=== PATIENT | male | born 1975 ===

== ENCOUNTER 2018-07-03 18:39 | Inpatient (IN) | payer SELFPAY ==
[2018-07-03 19:55] VITALS: BMI 26.5
[2018-07-03] MEDS ORDERED: Fentanyl 100 MCG/2 ML VIAL SLOW IVP PRN ×2 (21:47→22:00)
[2018-07-03] MEDS ORDERED: Ketorolac Tromethamine 30 MG/ML VIAL IVP PRN (22:01)
[2018-07-03] MEDS: Ketorolac Tromethamine 30 MG/ML VIAL IVP SCH (22:26)
[2018-07-03] MEDS ORDERED: Ondansetron PF 4 MG/2 ML Vial IVP PRN (22:26)
[2018-07-03] MEDS: Lidocaine 5% Patch TD SCH (22:28)
[2018-07-03] MEDS ORDERED: Nicotine 21 MG PATCH TD SCH (22:30)
[2018-07-03] MEDS: Sodium Chloride 0.9% 1,000 ML IV SCH (22:37)
[2018-07-03] MEDS: metroNIDAZOLE 500 MG in Premix Bag 1 BAG IVPB SCH (22:37)
--- NOTE | 2018-07-03 23:00 | HP ---
PRIMARY CARE PROVIDER: None. CHIEF COMPLAINT: Abdominal pain. HISTORY OF PRESENT ILLNESS: Mr. Anderson is a pleasant 42-year-old gentleman, who was seen at [facility] on July 03, 2018, following transfer from [facility]. He reports that last few days, he has had abdominal pain. He describes it as suprapubic, radiating to right and left lower quadrants, aching and stabbing, 10/10 at its worst, improved by lying still and worsened with movement. He denies any nausea or vomiting. His last bowel movement was yesterday. He had a tele MD conference and was started on Bactrim for prostatitis 3 days ago. He has worsening symptoms and therefore presented to the emergency room. REVIEW OF SYSTEMS: All other systems reviewed and found to be negative. PAST MEDICAL HISTORY: Diverticular disease. PAST SURGICAL HISTORY: Surgery for ruptured appendix 12 years ago. This was followed by incisional hernia repair. This was further followed by mesh replacement because of complications. FAMILY HISTORY: No family history of coronary artery disease. SOCIAL HISTORY: Occasional alcohol use. No recreational drug use. The patient smokes one pack of cigarettes a day. ALLERGIES: MORPHINE, PATIENT REPORTS THAT HE GETS NAUSEOUS WITH MORPHINE. CURRENT MEDICATIONS: The patient does not take any medications on a regular basis at home. PHYSICAL EXAMINATION: GENERAL: On examination, Mr. Anderson is awake and alert, not in acute distress. VITAL SIGNS: Blood pressure is 124/79, pulse 93, respiratory rate 20, and oxygen saturation 97% on room air. He is afebrile. EYES: No scleral icterus. No conjunctival pallor. ENT: Moist mucosal membranes. No oropharyngeal erythema or exudates. NECK: Supple, nontender. Trachea is midline. RESPIRATORY: Accessory muscles of breathing are not active. Chest wall movements are symmetric bilaterally. Lungs are clear to auscultation without wheeze, rhonchi, or crepitations. CARDIOVASCULAR: S1 and S2 are heard, regular. Peripheral pulses palpable. No carotid bruit. No pericardial rub. ABDOMEN: Tenderness over both lower quadrants and suprapubic region. No guarding or rigidity. Bowel sounds heard. NEUROLOGIC: Cranial nerves 2 through 12 are intact. MUSCULOSKELETAL: Power is 5/5 in all four extremities. SKIN: No rashes or subcutaneous nodules. LYMPHATIC: No cervical lymphadenopathy. PSYCHIATRIC: Normal mood. Normal affect. Patient is oriented to person, place, and time. LABORATORY DATA: Mr. Anderson' labs and investigations were reviewed. He has leukocytosis with 15,600 white cells, of which 81% are granulocytes; hemoglobin is 14.2; platelet count is elevated at 519,000. He has normal electrolytes, normal creatinine, and unremarkable liver profile except for decreased albumin of 3.2, and elevated total protein of 8.1. Urinalysis is negative for nitrite and leukocyte esterase. He had CT scan of the abdomen and pelvis with intravenous contrast at the [facility], which showed probable diverticulitis with abscess inferior and anterior to the mid sigmoid colon. Radiologist reports that abscess could be associated with prior anterior abdominal wall hernia repair, and findings in sigmoid colon could be reactant to peritonitis, but this is less likely. ASSESSMENT AND PLAN: Mr. Anderson is a pleasant 42-year-old gentleman, who was seen at [facility] on July 03, 2018. His problem list includes: 1. Abdominal pain: Differential diagnosis includes diverticular abscess as well as peritonitis, peritonitis being less likely. He has been started on antibiotics at [facility]. I will continue him on ciprofloxacin and Flagyl. We will consult General Surgery for opinion and help with management. We will continue pain medications. 2. Tobacco abuse: The patient has been counseled regarding tobacco cessation. We will start him on nicotine replacement therapy. Many thanks for allowing me to participate in your patient's care. Please feel free to contact me with any questions or concerns. LEVEL OF RISK: Moderate. LEVEL OF COMPLEXITY: Moderate. Job ID: [id number]
[2018-07-03] MEDS: Promethazine HCl 25 MG/ML VIAL IM/IV PRN (23:51)
[2018-07-03] MEDS: Morphine 4 MG/ML VIAL SLOW IVP PRN (23:51)
[2018-07-04] MEDS: metroNIDAZOLE 500 MG in Premix Bag 1 BAG IVPB SCH ×3 (06:32→22:38)
[2018-07-04 07:02] LABS: #Basophils 0.1 thou/uL (0.0-0.2); #Eosinphils 0.6 thou/uL (0.0-0.7); #Lymphocytes 2.5 thou/uL (1.20-3.40); #Monocytes 1.5 thou/uL (0.11-0.59); #Neutrophils 12.1 thou/uL (1.40-6.50); %Basophils 0.4 % (0.0-1.0); %Eosinophils 3.3 % (0.0-10.0); %Lymphocytes 14.9 % (21.0-51.0); %Monocytes 9.2 % (0.0-10.0); %Neutrophils 72.2 % (42.0-75.0); Hemoglobin 11.8 g/dL (14.0-18.0); Mean Corpuscular HGB CONC 33.3 g/dL (32.0-36.0); Mean Corpuscular Hemoglobin 32.1 pg (27.0-31.0); Mean Corpuscular Volume 96.2 fL (78.0-98.0); Mean Platelet Volume 6.9 fL (7.4-10.4); Platelet Count 469 thou/uL (130-400); RBC Distribution Width 11.6 % (11.5-14.5); Red Blood Cell (RBC) Count 3.68 mill/uL (4.70-6.10); White Blood Cell (WBC) Count 16.7 thou/uL (4.8-10.8)
[2018-07-04 07:18] LABS: Anion Gap 14 mmol/L (10-20); BUN (Urea Nitrogen) 10 mg/dL (8.9-20.6); Calc. Creatinine Clearance 173 mL/min (70-130); Calcium 8.7 mg/dL (7.8-10.44); Carbon Dioxide 17 mmol/L (22-29); Chloride 106 mmol/L (98-107); Estimated GFR-MDRD Greater than 90; Glucose 95 mg/dL (70-105); Potassium 4.1 mmol/L (3.5-5.1); Sodium 133 mmol/L (136-145)
[2018-07-04] MEDS: Promethazine HCl 25 MG/ML VIAL IM/IV PRN ×3 (07:27→20:34)
[2018-07-04] MEDS: Morphine 4 MG/ML VIAL SLOW IVP PRN ×3 (07:28→20:35)
[2018-07-04] MEDS: Enoxaparin Sodium 40 MG/0.4 ML SYRINGE SC SCH (09:00)
[2018-07-04 11:04] LABS: INR-International Normal Ratio 1.2; PTT 38.6 SEC (22.9-36.1); Prothrombin Time 15.2 SEC (12.0-14.7)
[2018-07-04] MEDS: Nicotine 21 MG PATCH TD SCH (11:14)
[2018-07-04] MEDS: Ketorolac Tromethamine 30 MG/ML VIAL IVP SCH (12:09)
[2018-07-04] MEDS: Sodium Chloride 0.9% 1,000 ML IV SCH (13:00)
[2018-07-04] MEDS ORDERED: Sodium Bicarbonate 2.5 MEQ/5 ML VIAL ONE (13:04)
[2018-07-04] MEDS ORDERED: Midazolam HCl 2 mg/2 ml Vial ONE (13:05)
[2018-07-04] MEDS ORDERED: Fentanyl 100 MCG/2 ML VIAL ONE (13:05)
--- NOTE | 2018-07-04 13:18 | CON ---
DATE OF CONSULTATION: 07/04/2018 HISTORY: Mr. Anderson is a 42-year-old man, who was admitted with over 1-week history of left lower quadrant greater than right lower abdominal pain. The patient consulted a telemedicine 1 week ago and was uncertain about a diagnosis. He presented to the stand-alone emergency department in [facility] yesterday, at which time he underwent a CT scan of the abdomen and pelvis, finding acute diverticulitis with diverticular abscess. Antibiotic therapy was initiated and the patient was transferred to [facility] for upper level care. At the time of my evaluation, the patient is awake and alert. He reports 9/10 abdominal pain, which is exacerbated with any movement. Pain is exacerbated with abdominal exertion during urination or defecation. The patient reports some fever and chills, although he has not been able to take his body temperature at home. At maximum intensity, the pain was rated at 10/10. PAST MEDICAL HISTORY: Significant for ruptured appendix 13 years ago, complicated by a postoperative ventral incisional hernia. PAST SURGICAL HISTORY: Significant for exploratory laparotomy and appendectomy for ruptured appendix 12-13 years ago. Other pertinent surgical history includes reoperative laparotomy and repair of ventral incisional hernia with mesh. The mesh was subsequently removed due to infection. According to the patient, a ventral incisional herniorrhaphy was again performed. SOCIAL HISTORY: He is single, lives independently. 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 He has over a [id number] cigarette smoking history. He drinks a moderate amount of ethanol occasionally. He denies any illicit drug abuse. FAMILY HISTORY: Pertinent for diabetes mellitus in his father. He denies any family history of coronary artery disease, essential hypertension, inflammatory bowel disease, or cancer. MEDICATIONS: Prehospitalization medications, none. ALLERGIES: MORPHINE. REVIEW OF SYSTEMS: Ten-point review of systems essentially unremarkable except as stated in past medical history and chief complaint. PHYSICAL EXAMINATION: GENERAL: This reveals a 42-year-old normally developed man, who is otherwise coherent and interactive and appears stated age. The patient is alert and oriented x3, appears to be in moderate acute distress secondary to abdominal pain. VITAL SIGNS: Today include blood pressure 103/70, pulse is 90, respiratory rate is 20, temperature is 97.9 degrees Fahrenheit, and oxygen saturation is 95% on room air. HEENT: Normocephalic and atraumatic. Pupils equal, round, and reactive to light and accommodation. He has no jugular venous distention noted. HEART: Regular rate and rhythm. No murmurs or gallops auscultated. LUNGS: Clear to auscultation bilaterally. Breathing, regular and nonlabored. ABDOMEN: Soft with severe lower abdominal tenderness to palpation, greater in the left lower quadrant. There is also significant suprapubic tenderness to palpation. He has a positive rebound tenderness present. Liver and spleen otherwise nonpalpable below costal margin. NEUROLOGIC: No focal deficits present. LABORATORY FINDINGS: Today include a CBC with 16,700 white blood cells, hemoglobin and hematocrit 11.8 and 35.4 respectively, and platelet count is 469,000. Metabolic profile; sodium 133, potassium is 4.1, chloride is 106, bicarb is 17, BUN is 10, creatinine is 0.66, and glucose is 95. I personally reviewed the CT scan of the abdomen pelvis, which was obtained at [facility] yesterday. This reveals extensive diverticulosis coli involving the left colon, there is a significant amount of pericolonic fat stranding and large abscess collection pressing on the urinary bladder. No pneumoperitoneum is present. IMPRESSIONS: 1. Acute diverticulitis. 2. Large diverticular abscess. RECOMMENDATIONS: 1. We will ask Interventional Radiology for percutaneous abscess drainage. 2. We will obtain cultures at that time. 3. Continue broad-spectrum antibiotic therapy. 4. There is no acute surgical indication for this patient at this time. 5. Surgical intervention would only be deferred for failure of conservative therapy. 6. The patient will subsequently be followed up in the general surgery clinic post discharge after a 2-week course of oral antibiotic therapy. 7. I did discuss with the patient of the potential for an elective sigmoidectomy after this current process has resolved. He will eventually need a preoperative colonoscopy. 8. Surgery will be performed in elective fashion, will entail sigmoidectomy with primary anastomosis once bowel was prepped. 9. Any operative intervention at this time without resolution of the acute inflammatory process will be fraught with potential complications, not to mention the need for colostomy at that time. 10. The patient indicates understanding the information given. I will follow along the course of his treatment and make further recommendations as necessary. Thank you again, Dr. Seals, for allowing me the opportunity to participate in the care of this patient. Job ID: [id number]
--- NOTE | 2018-07-04 13:20 | PDOC.PN ---
- Subjective Encounter Start Date: 07/04/18 Encounter Start Time: 11:00 Subjective: abd pain is better, is taking a lot of pain meds to counter it -: no nausea, is npo - Objective MAR Reviewed: Yes Vital Signs & Weight: Vital Signs (12 hours) Temp Pulse Resp BP Pulse Ox 07/04/18 11:55 99.2 F 86 20 100/69 92 L 07/04/18 08:00 97.9 F 90 20 103/70 95 07/04/18 07:28 110/70 07/04/18 04:54 98.9 F 89 16 107/71 97 Weight Weight 185 lb Result Diagrams: 07/04/18 06:23 07/04/18 06:23 Phys Exam - Physical Examination HEENT: PERRLA dry mucosa Neck: no JVD, supple Respiratory: no wheezing, no rales Cardiovascular: RRR, no significant murmur Gastrointestinal: soft, no distention, positive bowel sounds tenderness++ generalized, more in llq, has voluntary guarding Musculoskeletal: no edema, pulses present Neurological: non-focal, moves all 4 limbs Psychiatric: normal affect, A&O x 3 Dx/Plan (1) Acute diverticulitis Code(s): K57.92 - DVTRCLI OF INTEST, PART UNSP, W/O PERF OR ABSCESS W/O BLEED Status: Acute Comment: with abscess (2) Sepsis Code(s): A41.9 - SEPSIS, UNSPECIFIED ORGANISM Status: Acute Qualifiers: Sepsis type: sepsis due to unspecified organism Qualified Code(s): A41.9 - Sepsis, unspecified organism (3) Metabolic acidosis Code(s): E87.2 - ACIDOSIS Status: Acute (4) Tobacco abuse Code(s): Z72.0 - TOBACCO USE Status: Chronic - Plan d/w , has asked IR for percut tube drainage of abscess -: will f/u as outpt after he is discharged -: on cipro, flagyl, morphine, toradol, fentanyl -: iv hydration -: wbc is 16k, will need ID consult based on abscess culture results * . Review of Systems - Medications/Allergies Allergies/Adverse Reactions: Allergies Allergy/AdvReac Type Severity Reaction Status Date / Time No Known Allergies Allergy Unverified 07/03/18 22:57 Medications: Current Medications Enoxaparin Sodium (Lovenox) 40 mg SC 0900 [facility] Last Admin: 07/04/18 09:00 Dose: Not Given Fentanyl (Sublimaze) 12.5 mcg SLOW IVP Q8H PRN PRN Reason: Pain Last Admin: 07/04/18 10:53 Dose: 12.5 mcg Ciprofloxacin/Dextrose 400 mg/ (Device) 200 mls @ 200 mls/hr IVPB Q12H [facility] Last Admin: 07/04/18 10:47 Dose: 200 mls Metronidazole 500 mg/ Device 100 mls @ 100 mls/hr IVPB Q8H [facility] Last Admin: 07/04/18 06:32 Dose: 100 mls Sodium Chloride (Normal Saline 0.9%) 1,000 mls @ 70 mls/hr IV .[id number] [facility] Last Admin: 07/03/18 22:37 Dose: 1,000 mls Ketorolac Tromethamine (Toradol) 30 mg IVP ONE [facility] Stop: 07/08/18 22:16 Last Admin: 07/04/18 12:09 Dose: 30 mg Ketorolac Tromethamine (Toradol) 15 mg IVP Q6H PRN PRN Reason: Pain Stop: 07/08/18 22:02 Last Admin: 07/04/18 06:34 Dose: 15 mg Lidocaine (Lidoderm 5% Patch) 1 patch TD Q24H [facility] Last Admin: 07/03/18 22:28 Dose: 1 patch Morphine Sulfate (Morphine) 2 mg SLOW IVP Q4H PRN PRN Reason: Pain Last Admin: 07/04/18 13:08 Dose: 2 mg Nicotine (Nicoderm Patch) 21 mg TD Q24HR [facility] Last Admin: 07/04/18 11:14 Dose: 21 mg Promethazine HCl (Phenergan) 25 mg IM/IV Q6H PRN PRN Reason: Nausea/Vomiting Last Admin: 07/04/18 13:09 Dose: 25 mg
--- NOTE | 2018-07-04 15:36 | CT ---
CT GUIDED PERCUTANEOUS ABSCESS DRAINAGE 07/04/18 HISTORY: Diverticular abscess. COMPARISON: Outside imaging 07/03/18. CONSCIOUS SEDATION: 25 micrograms of Fentanyl and 1 gram versed. FINDINGS: Technically successful CT guided percutaneous abscess drainage. Total of 105 mL of infected fluid was aspirated. No immediate or postprocedure complications. TECHNIQUE: Consent obtained to perform a CT guided percutaneous abscess drainage. The infected fluid collection was identified. Skin was marked. Skin was also prepped and draped utilizing sterile technique. 1% li docaine buffered with sodium bicarbonate was used for local anesthesia. Under CT guidance, an 8 Frenc h drainage catheter was placed into the infected fluid collection. Total of 105 mL of infected fluid was aspirated. Postprocedure images demonstrate appropriate location of the drainage catheter. There were no immediate or postprocedure complications. IMPRESSION: Successful CT guided abscess drainage. POS: ROBERTO CARLOS
[2018-07-04] MEDS: Lidocaine 5% Patch TD SCH (20:36)
[2018-07-04 20:54] LABS: BF Color Gray; Body Fluid Source Abscess Fluid; Clarity Cloudy/Turbid (Clear); Tube # EDTA
[2018-07-05] MEDS: Sodium Chloride 0.9% 1,000 ML IV SCH (02:00)
[2018-07-05] MEDS: metroNIDAZOLE 500 MG in Premix Bag 1 BAG IVPB SCH ×2 (04:23→13:51)
[2018-07-05] MEDS: Morphine 4 MG/ML VIAL SLOW IVP PRN ×2 (04:24→10:28)
[2018-07-05] MEDS: Promethazine HCl 25 MG/ML VIAL IM/IV PRN ×2 (04:25→10:28)
[2018-07-05] MEDS: Enoxaparin Sodium 40 MG/0.4 ML SYRINGE SC SCH (10:02)
[2018-07-05] MEDS: Nicotine 21 MG PATCH TD SCH (10:28)
--- NOTE | 2018-07-05 13:36 | PDOC.PN ---
- Subjective Encounter Start Date: 07/05/18 Encounter Start Time: 11:30 Patient seen and examined for Diverticular absces s/p CT drainage. Had BM earlier. No N/V. Appetite improving. Intermittent abd pain+. No fever/chills. No other complaints. No overnight events - Objective MAR Reviewed: Yes Vital Signs & Weight: Vital Signs (12 hours) Temp Pulse Resp BP Pulse Ox 07/05/18 08:00 97.5 F L 71 18 94/64 93 L 07/05/18 04:30 97.8 F 80 18 99/67 93 L Weight Weight 185 lb I&O: 07/04/18 07/05/18 07/06/18 06:59 06:59 06:59 Output Total 25 Balance -25 Result Diagrams: 07/04/18 06:23 07/04/18 06:23 Phys Exam - Physical Examination Constitutional: NAD Respiratory: no wheezing, no rhonchi Cardiovascular: RRR, no rub Gastrointestinal: soft, no distention, positive bowel sounds mild tenderness over suprapubic region Musculoskeletal: no edema, pulses present Neurological: non-focal, moves all 4 limbs Psychiatric: A&O x 3 Dx/Plan - Plan DVT proph w/SCDs 1. Sepsis due to Acute Diverticulitis with abscess s/p CT drainage 2. Metabolic acidosis 3. Tobacco dep PLAN: Cont IVF Cont IV Cipro and Flagyl Await cultures Cont other meds as below AM labs Consult [employer] Claims Adjuster for dietary modification for Diverticulosis Microbiology 07/04/18 16:06 Venous blood - Right Hand Blood Culture - Preliminary Specimen has been received and culture in progress. No Growth to date. 07/04/18 16:01 Venous blood - Right Arm Blood Culture - Preliminary Specimen has been received and culture in progress. No Growth to date. 07/04/18 14:15 Abdomen - Abscess Bacterial Culture - Preliminary Gram Negative Gabe Alpha-Hemolytic Streptococcus Laboratory Tests 07/04/18 10:45 C-Reactive Protein 18.63 H Review of Systems - Review of Systems Respiratory: negative: Cough, Dry, Shortness of Breath, Hemoptysis, SOB with Excertion, Pleuritic Pain, Sputum, Wheezing Cardiovascular: negative: chest pain, palpitations, orthopnea, paroxysmal nocturnal dyspnea, edema, light headedness, other - Medications/Allergies Allergies/Adverse Reactions: Allergies Allergy/AdvReac Type Severity Reaction Status Date / Time No Known Allergies Allergy Unverified 07/03/18 22:57 Medications: Current Medications Enoxaparin Sodium (Lovenox) 40 mg SC 0900 [facility] Last Admin: 07/05/18 10:02 Dose: 40 mg Ciprofloxacin/Dextrose 400 mg/ (Device) 200 mls @ 200 mls/hr IVPB Q12H [facility] Last Admin: 07/05/18 10:02 Dose: 200 mls Metronidazole 500 mg/ Device 100 mls @ 100 mls/hr IVPB Q8H [facility] Last Admin: 07/05/18 04:23 Dose: 100 mls Sodium Chloride (Normal Saline 0.9%) 1,000 mls @ 70 mls/hr IV .[id number] [facility] Last Admin: 07/05/18 02:00 Dose: Not Given Lidocaine (Lidoderm 5% Patch) 1 patch TD Q24H [facility] Last Admin: 07/04/18 20:36 Dose: 1 patch Morphine Sulfate (Morphine) 4 mg SLOW IVP Q4H PRN PRN Reason: Pain Last Admin: 07/05/18 10:28 Dose: 4 mg Nicotine (Nicoderm Patch) 21 mg TD Q24HR [facility] Last Admin: 07/05/18 10:28 Dose: 21 mg Promethazine HCl (Phenergan) 25 mg IM/IV Q6H PRN PRN Reason: Nausea/Vomiting Last Admin: 07/05/18 10:28 Dose: 25 mg Saccharomyces Boulardii (Florastor) 250 mg PO DAILY [facility]
[2018-07-05 14:18] LABS: #Basophils 0.1 thou/uL (0.0-0.2); #Eosinphils 0.8 thou/uL (0.0-0.7); #Lymphocytes 3.1 thou/uL (1.20-3.40); #Monocytes 0.7 thou/uL (0.11-0.59); #Neutrophils 5.8 thou/uL (1.40-6.50); %Basophils 0.6 % (0.0-1.0); %Eosinophils 7.5 % (0.0-10.0); %Lymphocytes 29.7 % (21.0-51.0); %Neutrophils 55.3 % (42.0-75.0); Hemoglobin 11.9 g/dL (14.0-18.0); Mean Corpuscular HGB CONC 33.8 g/dL (32.0-36.0); Mean Corpuscular Hemoglobin 32.8 pg (27.0-31.0); Mean Corpuscular Volume 96.8 fL (78.0-98.0); Mean Platelet Volume 6.8 fL (7.4-10.4); Platelet Count 497 thou/uL (130-400); RBC Distribution Width 11.5 % (11.5-14.5); Red Blood Cell (RBC) Count 3.65 mill/uL (4.70-6.10); White Blood Cell (WBC) Count 10.4 thou/uL (4.8-10.8)
[2018-07-05] MEDS ORDERED: traMADol HCl 50 MG TAB PO PRN ×2 (14:45)
[2018-07-05] MEDS: metroNIDAZOLE 500 MG TAB PO SCH ×2 (15:15→20:04)
[2018-07-05] MEDS: Acetaminophen 500 MG TAB PO SCH (16:56)
--- NOTE | 2018-07-05 18:41 | PRG ---
DATE OF SERVICE: 07/05/2018 SUBJECTIVE: Mr. Luis Anderson is a 42-year-old male, whom our team is seeing in consultation for diverticular abscess. The patient is status post percutaneous drain placement. He reports that his pain is greatly improved overnight. He denies any fevers overnight. He is increasing his mobility. His bowel function has returned to normal. He is tolerating a liquid diet at this time. OBJECTIVE: VITAL SIGNS: Temperature of 98.0, pulse 71, respirations 18, O2 saturation 94% on room air, and blood pressure 94/64. GENERAL: Resting in bed, in no acute distress. HEENT: Head is normocephalic, atraumatic. Eyes; pupils are PERRL. Extraocular movements are intact. NECK: Supple. Trachea is midline. CHEST/PULMONARY: Normal work of breathing. Symmetric rise. ABDOMEN: Soft, nontender, and nondistended. Percutaneous drain with cloudy serosanguineous drainage noted approximately 25 mL overnight. MUSCULOSKELETAL: Moves all extremities x4. NEURO: No focal deficit noted. LABORATORY FINDINGS: WBC 10.4, hemoglobin 11.9, hematocrit 35.3, and platelet count 497. ASSESSMENT: 1. Acute diverticulitis with large diverticular abscess, status post percutaneous drain placement. 2. History of hernia repair with mesh. 3. Acute abdominal pain secondary to above. PLAN: Transition the patient to p.o. antibiotics. The patient is eager for discharge as he reports that he has a very important work interview on Sunday. The patient's case was discussed with Dr. Frost. She states that if the patient remains hemodynamically stable and continues to improve this may be a possibility. Transition to p.o. pain medication, general diet, and p.o. antibiotics. Encourage mobility. The patient will need teaching with nursing on flushing drain at home. Drain will likely remain in place until he can have followup as an outpatient. Follow up abscess microbiology, currently positive for gram-negative rods and alpha-hemolytic strep. Discontinue IV fluids. A.m. labs. Job ID: [id number] [facility]
[2018-07-05] MEDS: Ibuprofen 800 MG TAB PO SCH (20:04)
[2018-07-05] MEDS: Ciprofloxacin 500 MG TAB PO SCH (20:04)
[2018-07-05] MEDS: Lidocaine 5% Patch TD SCH (20:04)
[2018-07-06] MEDS: Acetaminophen 500 MG TAB PO SCH ×3 (00:04→12:56)
[2018-07-06] MEDS: Ibuprofen 800 MG TAB PO SCH ×2 (05:49→14:11)
[2018-07-06] MEDS: Ciprofloxacin 500 MG TAB PO SCH (05:49)
[2018-07-06 07:17] LABS: #Basophils 0.1 thou/uL (0.0-0.2); #Monocytes 0.7 thou/uL (0.11-0.59); %Basophils 0.7 % (0.0-1.0); %Eosinophils 9.3 % (0.0-10.0); %Lymphocytes 27.9 % (21.0-51.0); %Monocytes 6.5 % (0.0-10.0); %Neutrophils 55.6 % (42.0-75.0); Mean Corpuscular Hemoglobin 31.9 pg (27.0-31.0); Mean Corpuscular Volume 96.7 fL (78.0-98.0); Mean Platelet Volume 7.5 fL (7.4-10.4); Platelet Count 504 thou/uL (130-400); RBC Distribution Width 11.6 % (11.5-14.5); Red Blood Cell (RBC) Count 4.09 mill/uL (4.70-6.10); White Blood Cell (WBC) Count 10.7 thou/uL (4.8-10.8)
[2018-07-06 07:35] LABS: ALT (SGPT) 12 U/L (8-55); AST (SGOT) 14 U/L (5-34); Albumin 3.3 g/dL (3.5-5.0); Alkaline Phosphatase 79 U/L (40-150); Anion Gap 14 mmol/L (10-20); BUN (Urea Nitrogen) 10 mg/dL (8.9-20.6); Bilirubin, Total 0.3 mg/dL (0.2-1.2); Calc. Creatinine Clearance 176 mL/min (70-130); Calcium 9.3 mg/dL (7.8-10.44); Carbon Dioxide 21 mmol/L (22-29); Chloride 105 mmol/L (98-107); Estimated GFR-MDRD Greater than 90; Globulin 3.9 g/dL (2.4-3.5); Glucose 83 mg/dL (70-105); Magnesium 1.8 mg/dL (1.6-2.6); Phosphorus 4.4 mg/dL (2.3-4.7); Potassium 4.2 mmol/L (3.5-5.1); Protein, Total 7.2 g/dL (6.0-8.3); Sodium 136 mmol/L (136-145)
[2018-07-06] MEDS ORDERED: Saccharomyces boulardii 250 MG CAP PO SCH (09:00)
[2018-07-06] MEDS: Enoxaparin Sodium 40 MG/0.4 ML SYRINGE SC SCH (09:12)
[2018-07-06] MEDS: metroNIDAZOLE 500 MG TAB PO SCH (09:12)
[2018-07-06 11:00] VITALS: BP 102/69; TEMP 97.8
[2018-07-06] MEDS: Nicotine 21 MG PATCH TD SCH (12:57)
[2018-07-06] MEDS ORDERED: Amoxicillin/Potassium Clav 875 MG TAB PO SCH (21:00)
--- NOTE | 2018-07-07 02:22 | DIS ---
DATE OF ADMISSION: 07/03/2018 DATE OF DISCHARGE: 07/06/2018 PRIMARY CARE PROVIDER: None. DISCHARGE DIAGNOSIS: Diverticular abscess. DISCHARGE CONDITION: Condition of patient on the day of discharge: Stable. I assessed Mr. Anderson on the day of discharge. He denies any chest pain or shortness of breath. He denies any abdominal pain. Vital signs are stable. S1 and S2 are heard, regular. Lungs are clear to auscultation bilaterally. CONSULTATIONS DURING THIS HOSPITALIZATION: General Surgery, Dr. Arcos. DISCHARGE MEDICATIONS: 1. Augmentin 875 mg 2 times a day for 2 weeks. 2. Flagyl 500 mg 3 times a day for 2 weeks. 3. Colace 100 mg 2 times a day for 2 weeks. 4. Tramadol 50 mg every 8 hours as needed. 5. Tylenol No. 3 one tablet every 8 hours as needed. HOSPITAL COURSE: Mr. Anderson is a pleasant 42-year-old gentleman who was admitted to [facility] on July 03, 2018, for diverticular abscess. Please refer to my history and physical note dated July 03, 2018, for further details. He was seen by General Surgery Service. He underwent CT-guided drainage of the abscess. Cultures grew Escherichia coli and Enterococcus avium. Escherichia coli was resistant to ciprofloxacin, levofloxacin, and trimethoprim/sulfamethoxazole and was sensitive to amikacin, ampicillin, cefepime, cefoxitin, ceftazidime, ceftriaxone, gentamicin, meropenem, Zosyn, and tobramycin. He is being discharged home on oral antibiotics with the drain in place. He will be seen by General Surgery Service in 1 weeks' time. On the day of discharge, he has white count 92125, hemoglobin 13, platelet count 504,000. Sodium 136, potassium 4.2, creatinine 0.65. Many thanks for allowing me to participate in your patient's care. Please feel free to contact me with any questions or concerns. DISCHARGE DESTINATION: Home. TIME SPENT: Total amount of time spent coordinating this discharge: 33 minutes. Job ID: [id number]
--- NOTE | 2018-07-09 04:10 | PQF ---
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 Clinical indicators are provided on the bottom of this form for your review Please check appropriate box(s) to clarify if the following diagnosis has been ruled in or ruled out: Can you please specify whether Sepsis is ruled in or ruled out during this encounter? Sepsis [ ] Ruled in diagnosis [ ] Continue to treat [ ] Resolved [ x ] Ruled out diagnosis [ ] Cannot rule out diagnosis [ ] Other diagnosis please specify: [ ] Unable to determine In addition, please specify: Present on Admission (POA): [ ] Yes [ ] No [ ] Unable to determine For continuity of documentation, please document condition throughout progress notes and discharge summary. Thank You. CLINICAL INDICATORS: -Consultation by Dr. Arcos 07/04 pg1 He presented to the [facility] emergency department in [facility] yesterday, underwent CT scan of the abdomen and pelvis, finding acute diverticulitis with diverticular abscess. Antibiotic therapy was initiated and the patient was transfered to [facility] for upper level of care - Consultation by Dr. Arcos 07/04 pg3 Impression: Acute Diverticulits, Large Diverticular Abscess - PN by Dr. Seals 07/04 pg2 Sepsis unspecified organism - PN by Dr. Seals 07/04 pg2 Metabolic acidosis - PN by Dr. Gonsalez 07/05 pg2 Sespis due to Acute Diverticulitis with abscess s/ p CT drainage -DS by Dr. Selby 07/06 pg1 Discharge diagnosis: Diverticular abscess - Microbiology 07/04 Abdomen abscess culture- Escherichia coli, enterococcus avium - Laboratory result 07/04 WBC=16.7 H - Vital signs 07/05: BP 94/64 mm/Hg, Temp 97.5 F RISK FACTOR: -Diverticular Disease with diverticular abscess - Consultation by Dr. Arcos pg3 -Mesh removed due to infection- PSH Consultation by Dr. Arcos 07/04 pg1 TREATMENTS: -CT guided percutaneous abscess drainage- Abscess Drainage CT 07/04 -Metronidazole 500 mg IV-JUN 03 -Ciprofloxacin 400 mg IV-JUN 03 -Sodium Chloride 0.9% IV-JUN 03 Amoxicillin 875 mg PO [id number] Culture Abscess and Blood- Microbiology 07/04 (This form is maintained as a part of the permanent medical record) 2015 [employer]. All Rights Reserved Nallely [not provided] MTDD
--- NOTE | 2018-07-09 13:26 | CT ---
CT GUIDED PERCUTANEOUS ABSCESS DRAINAGE 07/04/18 HISTORY: Diverticular abscess. COMPARISON: Outside imaging 07/03/18. CONSCIOUS SEDATION: 25 micrograms of Fentanyl and 1 gram versed. FINDINGS: Technically successful CT guided percutaneous abscess drainage. Total of 105 mL of infected fluid was aspirated. No immediate or postprocedure complications. TECHNIQUE: Consent obtained to perform a CT guided percutaneous abscess drainage. The infected fluid collection was identified. Skin was marked. Skin was also prepped and draped utilizing sterile technique. 1% lidocaine buffered with sodium bicarbonate was used for local anesthesia. Under CT guidance, an 8 [place] drainage catheter was placed into the infected fluid collection. Total of 105 mL of infected fluid was aspirated. Postprocedure images demonstrate appropriate location of the drainage catheter. There were no immediate or postprocedure complications. IMPRESSION: Successful CT guided abscess drainage. Transcribed Date/Time: 07/09/2018 1:25 PM
== END 2018-07-06 14:05 | disposition home or self-care (01) | DRG 392 ==
LOC: T4-B 19:12
PROVIDERS: ADMIT Family Medicine; ATTEND Family Medicine
PROC: 0D9W3ZZ Drainage of Peritoneum, Percutaneous Approach (ICD-10-PCS; principal; 2018-07-04)
DX: K57.20 Diverticulitis of large intestine with perforation and abscess without bleeding (principal); E87.2 Acidosis; F17.210 Nicotine dependence, cigarettes, uncomplicated; Z60.2 Problems related to living alone; B96.20 Unspecified Escherichia coli [E. coli] as the cause of diseases classified elsewhere; Z16.24 Resistance to multiple antibiotics; B95.2 Enterococcus as the cause of diseases classified elsewhere; Z90.49 Acquired absence of other specified parts of digestive tract; Z87.19 Personal history of other diseases of the digestive system; Z88.5 Allergy status to narcotic agent
CPT/HCPCS: 36415; 49020; 77012; 80048; 80053; 83735; 84100; 85025; 85060; 85610; 85730; 86140; 87040; 87070; 87077; 87086; 87186; 87205; 89051; C1729; J0744; J1650; J1885; J2250; J2270; J2550; J3010